=== PATIENT | male | born 1990 | race Caucasian/White ===

== ENCOUNTER → 2017-06-05 | Outpatient (CLI) | payer OTHER ==
--- NOTE | 2017-05-14 09:24 | PFTRPT ---
Tech: Henri BRUNO RRT Age: 27 Sex: Male Race: Height: 70.00 Inches Weight: 170.00 Lbs BSA: 1.95 Diagnosis: R06.02 PULMONARY FUNCTION REPORT (PRE AND POST SPIROMETRY) ORDERING PROVIDER: OMID Gold DATE OF SERVICE: 05/14/17 SPIROMETRY: Pre and post bronchodilator study of excellent technical quality. The forced vital capacity is elevated. The FEV1 is mildly out of proportion. The obstructive index is, therefore, reduced. FLOW VOLUME LOOP: The expiratory limb of the flow volume limb does suggest at least some degree of flow rate limitation. No significant bronchodilator response is identified. IMPRESSION: Mild obstructive ventilatory impairment without bronchodilator response. Please correlate clinically. MTDD
[~2017-06-05] MED LIST: METHACHOLINE KIT (J7674) INH ONE
== END ==
LOC: M CARPUL 05-14 08:37
PROVIDERS: ATTEND Nurse Practitioner Adult Health
DX: R06.02 Shortness of breath (principal)
CPT/HCPCS: 94070; J7674